=== PATIENT | female | born 1965 | race Caucasian/White ===

== ENCOUNTER 2016-12-19 16:59 | Emergency (ER) | payer OTHER ==
[~2016-12-19] VITALS: Ht 162.6 cm; Wt 94.3 kg
[2016-12-19 17:32] VITALS: BP_SYST 148
[2016-12-19] MEDS ORDERED: DIPHENHYDRAMINE INJ 50 MG/ML VIAL IM ONE (18:15)
[2016-12-19] MEDS ORDERED: MORPHINE SULFATE 10 MG/ML VIAL IM ONE (18:15)
[2016-12-19 20:03] VITALS: BP_SYST 132
== END 2016-12-19 20:04 | disposition home or self-care (01) ==
LOC: SED 16:59
DX: M54.6 Pain in thoracic spine (principal); F17.210 Nicotine dependence, cigarettes, uncomplicated; Z98.84 Bariatric surgery status; Z90.49 Acquired absence of other specified parts of digestive tract
CPT/HCPCS: 71020; 96372; 99284; J1200; J2270